=== PATIENT | female | born 1945 | race Caucasian/White ===

== ENCOUNTER 2017-05-04 07:19 | Emergency (ER) | payer MEDICARE ==
[2017-05-04 08:40] LABS: BASOPHILS % (AUTO) 0.9 % (0.0-5.0); EOSINOPHILS % (AUTO) 0.8 % (0.0-8.0); HEMATOCRIT 39.7 % (36-48); MEAN CORPUSCULAR HEMOGLOBIN 31.4 pg (27.0-33.0); MEAN CORPUSCULAR HGB CONC 33.9 g/dL (32.0-36.0); MEAN CORPUSCULAR VOLUME 92.5 fL (79-99); MONOCYTES % (AUTO) 4.7 % (3.0-13.0); NEUTROPHILS % (AUTO) 26.6 % (40.0-77.0); NUCLEATED RED BLOOD CELLS 0.1 % (0.0-0.19); PLATELET COUNT (AUTO) 261 K/uL (130-400); RED CELL DISTRIBUTION WIDTH 13.4 % (11.0-15.5); WHITE BLOOD COUNT (AUTO) 20.2 K/uL (4.8-10.8)
[2017-05-04 08:48] LABS: CREATININE 0.7 mg/dL (0.5-1.5)
[2017-05-04 08:56] LABS: ALBUMIN 3.2 g/dL (3.5-5.0); BILIRUBIN,TOTAL 0.7 mg/dL (0.2-1.0); TOTAL PROTEIN, SERUM 7.5 g/dL (6.0-8.3)
[2017-05-04 09:06] LABS: B-TYPE NATRIURETIC PEPTIDE 30 pg/mL (0-100)
[2017-05-04] MEDS ORDERED: CEFTRIAXONE SODIUM 1 GM ONE (10:33)
== END 2017-05-04 11:03 | disposition home or self-care (01) ==
LOC: EDH 07:19
DX: J01.00 Acute maxillary sinusitis, unspecified (principal); J06.9 Acute upper respiratory infection, unspecified; R79.9 Abnormal finding of blood chemistry, unspecified; K21.9 Gastro-esophageal reflux disease without esophagitis; E78.5 Hyperlipidemia, unspecified; Z79.899 Other long term (current) drug therapy; Z91.041 Radiographic dye allergy status; Z90.49 Acquired absence of other specified parts of digestive tract; Z90.710 Acquired absence of both cervix and uterus
CPT/HCPCS: 36415; 71046; 80053; 83880; 84484; 85025; 87804 ×2; 93005; 96374; 99285; J0696

== ENCOUNTER 2018-03-22 16:30 | Emergency (ER) | payer MEDICARE ==
[2018-03-22 17:26] LABS: APPEARANCE,URINE Cloudy (CLEAR); BILIRUBIN,URINE Negative (NEGATIVE); COLOR,URINE Yellow (YELLOW); GLUCOSE, URINE (UA) Negative (NEGATIVE); KETONES,URINE Negative (NEGATIVE); LEUKOCYTE ESTERASE ,URINE Large (NEGATIVE); NITRATE,URINE Positive (NEGATIVE); OCCULT BLOOD,URINE Small (NEGATIVE); PH,URINE 5.5 (5.0-8.0); PROTEIN,URINE Negative (NEGATIVE)
[2018-03-22 17:47] LABS: BACTERIA,URINE Moderate /HPF (None Seen); WBC,URINE 51-100 /HPF (0-1)
[2018-03-22 17:48] LABS: SQUAMOUS EPITHELIAL CELL,UR Rare /HPF (0-2); TRANSITIONAL EPI CELLS,URINE Rare /HPF (None Seen)
[2018-03-22] MEDS ORDERED: CEFTRIAXONE SODIUM 1 GM ONE (18:17)
[2018-03-22] MEDS ORDERED: LIDOCAINE HCL-MPF 1% 2ML VIAL ONE (18:17)
== END 2018-03-22 18:46 | disposition home or self-care (01) ==
LOC: EDH 16:30
DX: N30.00 Acute cystitis without hematuria (principal); C95.10 Chronic leukemia of unspecified cell type not having achieved remission; K21.9 Gastro-esophageal reflux disease without esophagitis; E78.5 Hyperlipidemia, unspecified; Z90.49 Acquired absence of other specified parts of digestive tract; Z90.710 Acquired absence of both cervix and uterus; Z98.890 Other specified postprocedural states; Z91.041 Radiographic dye allergy status
CPT/HCPCS: 81001; 87077 ×2; 87088; 87186 ×2; 96372; 99283; J0696; J3490

== ENCOUNTER 2020-07-21 10:12 | Inpatient (IN) | payer MEDICARE ==
[~2020-07-21] VITALS: Ht 152.4 cm; Wt 59.3 kg
[2020-07-21 10:46] LABS: BASOPHILS % (AUTO) 0.1 % (0.0-5.0); EOSINOPHILS % (AUTO) 0.2 % (0.0-8.0); HEMATOCRIT 39.5 % (36-48); LYMPHOCYTES % (AUTO) 77.4 % (21.0-51.0); MEAN CORPUSCULAR HGB CONC 32.9 g/dL (32.0-36.0); MONOCYTES % (AUTO) 2.4 % (3.0-13.0); NEUTROPHILS % (AUTO) 19.5 % (40.0-77.0); PLATELET COUNT (AUTO) 314 K/uL (130-400); RED CELL DISTRIBUTION WIDTH 13.4 % (11.0-15.5)
[2020-07-21 10:59] LABS: CREATININE 0.7 mg/dL (0.5-1.5); POTASSIUM 4.1 mmol/L (3.5-5.1)
[2020-07-21 11:02] LABS: ALBUMIN 3.6 g/dL (3.5-5.0); BILIRUBIN,TOTAL 0.6 mg/dL (0.2-1.0); TOTAL PROTEIN, SERUM 7.7 g/dL (6.0-8.3)
[2020-07-21 11:50] LABS: APPEARANCE,URINE Clear (CLEAR); BILIRUBIN,URINE Negative (NEGATIVE); COLOR,URINE Yellow (YELLOW); GLUCOSE, URINE (UA) Negative (NEGATIVE); KETONES,URINE Negative (NEGATIVE); LEUKOCYTE ESTERASE ,URINE Trace (NEGATIVE); NITRATE,URINE Negative (NEGATIVE); OCCULT BLOOD,URINE Negative (NEGATIVE); PROTEIN,URINE Negative (NEGATIVE); UROBILINOGEN,URINE 0.2 mg/dL (0.2-1.0)
[2020-07-21 11:55] LABS: BASOPHILS % (MANUAL) 1 % (0-2); LYMPHOCYTES % (MANUAL) 82 % (22-44); MONOCYTES % (MANUAL) 3 % (2-9); SEGMENTED NEUTROPHILS % 14 % (40-70)
[2020-07-21 11:56] LABS: MAN.DIFF COMMENT-IMPRESSION MANUAL DIFFERENTIAL
[2020-07-21 11:57] LABS: PLATELET MORPHOLOGY COMMENT ADEQUATE
[2020-07-21 12:00] LABS: BACTERIA,URINE Rare /HPF (None Seen); RBC,URINE 0-1 /HPF (0-1); SQUAMOUS EPITHELIAL CELL,UR Rare /HPF (0-2); WBC,URINE 0-1 /HPF (0-1)
[2020-07-21] MEDS ORDERED: ONDANSETRON 4MG INJ ONE (12:32)
[2020-07-21] MEDS ORDERED: KETOROLAC 15MG/ML VIAL (15MG/ML) ONE (12:33)
[2020-07-21 12:42] LABS: INR 0.97 (0.85-1.15); PROTHROMBIN TIME 10.6 SEC (9.6-11.6)
[2020-07-21] MEDS ORDERED: ZOSYN 3.375GM+NS 50ML 50 ML IV ONE (12:42)
[2020-07-21 12:43] LABS: PARTIAL THROMBOPLASTIN TIME 23.5 SEC (26.3-35.5)
[2020-07-21] MEDS ORDERED: GUAIFENESIN-DM 200/20 MG 10 ML PO PRN (16:45)
[2020-07-21] MEDS ORDERED: LACTULOSE 20 GM/30 ML UDCUP PO PRN (16:45)
[2020-07-21] MEDS ORDERED: MORPHINE 2 MG SYG IV PRN ×2 (16:45→17:45)
[2020-07-21] MEDS ORDERED: ONDANSETRON 4MG INJ IV PRN (16:45)
[2020-07-21] MEDS ORDERED: DIPHENHYDRAMINE HCL 25 MG CAPSULE PO PRN (16:45)
[2020-07-21] MEDS ORDERED: ACETAMINOPHEN 325 MG TAB PO PRN ×2 (16:45)
[2020-07-21] MEDS ORDERED: DiphenhydrAMINE HCL 50 MG/ML VIAL IV PRN (16:45)
[2020-07-21] MEDS ORDERED: MAG/ALUM/SIMETH 30 ML UDCUP PO PRN (16:45)
[2020-07-21] MEDS ORDERED: NITROGLYCERIN 0.4 MG SL TAB SL PRN (16:45)
[2020-07-21] MEDS ORDERED: LACTATED RINGERS 1000ML 1,000 ML IV ONE (17:29)
[2020-07-21 19:50] VITALS: BP 159/53
[2020-07-21] MEDS: FAMOTIDINE 20MG VIAL IV SCH (20:33)
[2020-07-21] MEDS: ZOSYN 3.375GM+NS 50ML 50 ML IV SCH (20:33)
[2020-07-21] MEDS: LACTATED RINGERS 1000ML 1,000 ML IV SCH (20:34)
[2020-07-21] MEDS ORDERED: OMEP40CA21 PO (22:44)
[2020-07-21] MEDS ORDERED: METF-526 PO (22:44)
[2020-07-21] MEDS ORDERED: UBID1CAP56 PO (22:44)
[2020-07-21] MEDS ORDERED: ROSU20TA23 PO (22:44)
[2020-07-21 23:21] VITALS: BP 140/50
[2020-07-22 03:53] VITALS: BP 137/47
[2020-07-22 05:21] LABS: BASOPHILS % (AUTO) 0.3 % (0.0-5.0); EOSINOPHILS % (AUTO) 0.6 % (0.0-8.0); HEMATOCRIT 31.3 % (36-48); LYMPHOCYTES % (AUTO) 82.8 % (21.0-51.0); MEAN CORPUSCULAR HEMOGLOBIN 31.4 pg (27.0-33.0); MEAN CORPUSCULAR HGB CONC 32.9 g/dL (32.0-36.0); MEAN CORPUSCULAR VOLUME 95.4 fL (79-99); MONOCYTES % (AUTO) 2.3 % (3.0-13.0); NEUTROPHILS % (AUTO) 13.8 % (40.0-77.0); PLATELET COUNT (AUTO) 228 K/uL (130-400); RED BLOOD CELL COUNT(AUTO) 3.28 MIL/uL (4.00-5.50); RED CELL DISTRIBUTION WIDTH 13.7 % (11.0-15.5)
[2020-07-22 05:27] LABS: WHITE BLOOD COUNT (AUTO) 29.9 K/uL (4.8-10.8)
[2020-07-22] MEDS: ZOSYN 3.375GM+NS 50ML 50 ML IV SCH ×3 (05:30→21:58)
[2020-07-22] MEDS: LACTATED RINGERS 1000ML 1,000 ML IV SCH (05:31)
[2020-07-22 05:48] LABS: ALBUMIN 2.7 g/dL (3.5-5.0); BILIRUBIN,TOTAL 0.5 mg/dL (0.2-1.0); CREATININE 0.6 mg/dL (0.5-1.5); POTASSIUM 3.6 mmol/L (3.5-5.1); TOTAL PROTEIN, SERUM 5.9 g/dL (6.0-8.3)
[2020-07-22 08:47] VITALS: BP 151/52
[2020-07-22] MEDS: FAMOTIDINE 20MG VIAL IV SCH (10:35)
[2020-07-22] MEDS: ENOXAPARIN SODIUM 40 MG/0.4 ML SYRINGE SQ SCH (10:37)
[2020-07-22 12:13] VITALS: BP 145/51
[2020-07-22 17:27] VITALS: BP 109/73
[2020-07-22 20:00] VITALS: BP 155/75
[2020-07-23] VITALS (7 sets, daily range): BP systolic 135–176; BP diastolic 52–82
[2020-07-23] MEDS: ZOSYN 3.375GM+NS 50ML 50 ML IV SCH ×3 (05:21→21:36)
[2020-07-23 05:32] LABS: BASOPHILS % (AUTO) 0.3 % (0.0-5.0); HEMATOCRIT 31.9 % (36-48); LYMPHOCYTES % (AUTO) 87.7 % (21.0-51.0); MEAN CORPUSCULAR HEMOGLOBIN 31.5 pg (27.0-33.0); MEAN CORPUSCULAR HGB CONC 33.2 g/dL (32.0-36.0); MEAN CORPUSCULAR VOLUME 94.7 fL (79-99); MONOCYTES % (AUTO) 1.8 % (3.0-13.0); NEUTROPHILS % (AUTO) 9.1 % (40.0-77.0); PLATELET COUNT (AUTO) 243 K/uL (130-400); RED BLOOD CELL COUNT(AUTO) 3.37 MIL/uL (4.00-5.50); RED CELL DISTRIBUTION WIDTH 13.5 % (11.0-15.5); WHITE BLOOD COUNT (AUTO) 29.8 K/uL (4.8-10.8)
[2020-07-23 05:50] LABS: ALBUMIN 2.8 g/dL (3.5-5.0); BILIRUBIN,TOTAL 0.5 mg/dL (0.2-1.0); CREATININE 0.6 mg/dL (0.5-1.5); POTASSIUM 3.5 mmol/L (3.5-5.1); TOTAL PROTEIN, SERUM 6.1 g/dL (6.0-8.3)
[2020-07-23] MEDS: FAMOTIDINE 20MG VIAL IV SCH (09:01)
[2020-07-23] MEDS: ATORVASTATIN 40 MG TABLET PO SCH (09:02)
[2020-07-23] MEDS: PANTOPRAZOLE 40 MG TAB DR PO SCH (09:02)
[2020-07-23] MEDS: ENOXAPARIN SODIUM 40 MG/0.4 ML SYRINGE SQ SCH (09:02)
[2020-07-23] MEDS ORDERED: 0.9%NACL 1000ML 1,000 ML IV ONE (15:30)
[2020-07-23] MEDS ORDERED: KCL 20 MEQ ERTAB PO SCH (20:00)
[2020-07-24] VITALS: BP 145/61
[2020-07-24 04:00] VITALS: BP 126/58
[2020-07-24] MEDS: ZOSYN 3.375GM+NS 50ML 50 ML IV SCH (05:16)
[2020-07-24 05:55] LABS: BASOPHILS % (AUTO) 0.3 % (0.0-5.0); EOSINOPHILS % (AUTO) 1.1 % (0.0-8.0); HEMATOCRIT 33.6 % (36-48); LYMPHOCYTES % (AUTO) 88.9 % (21.0-51.0); MEAN CORPUSCULAR HEMOGLOBIN 30.3 pg (27.0-33.0); MEAN CORPUSCULAR HGB CONC 32.1 g/dL (32.0-36.0); MEAN CORPUSCULAR VOLUME 94.1 fL (79-99); MONOCYTES % (AUTO) 1.6 % (3.0-13.0); PLATELET COUNT (AUTO) 289 K/uL (130-400); RED BLOOD CELL COUNT(AUTO) 3.57 MIL/uL (4.00-5.50); RED CELL DISTRIBUTION WIDTH 13.5 % (11.0-15.5)
[2020-07-24 06:13] LABS: WHITE BLOOD COUNT (AUTO) 33.6 K/uL (4.8-10.8)
[2020-07-24 06:18] LABS: BILIRUBIN,TOTAL 0.4 mg/dL (0.2-1.0); CREATININE 0.7 mg/dL (0.5-1.5); POTASSIUM 3.9 mmol/L (3.5-5.1); TOTAL PROTEIN, SERUM 6.4 g/dL (6.0-8.3)
[2020-07-24 08:27] LABS: EOSINOPHILS % (MANUAL) 3 % (1-6); LYMPHOCYTES % (MANUAL) 77 % (22-44); MONOCYTES % (MANUAL) 1 % (2-9); SEGMENTED NEUTROPHILS % 19 % (40-70)
[2020-07-24 08:28] LABS: MAN.DIFF COMMENT-IMPRESSION MANUAL DIFFERENTIAL
[2020-07-24 08:29] LABS: PLATELET MORPHOLOGY COMMENT ADEQUATE
[2020-07-24 09:22] VITALS: BP 140/87
[2020-07-24] MEDS: FAMOTIDINE 20MG VIAL IV SCH (09:28)
[2020-07-24] MEDS: PANTOPRAZOLE 40 MG TAB DR PO SCH (09:29)
[2020-07-24] MEDS: ATORVASTATIN 40 MG TABLET PO SCH (09:29)
[2020-07-24] MEDS: ENOXAPARIN SODIUM 40 MG/0.4 ML SYRINGE SQ SCH (09:30)
[2020-07-24] MEDS ORDERED: AMOX-429 PO (11:14)
== END 2020-07-24 13:15 | disposition home or self-care (01) | DRG 392 ==
LOC: EDH 10:12 → EDHIP 16:31 → 3DH 19:04
PROVIDERS: ADMIT Family Medicine; ATTEND Family Medicine
DX: K57.32 Diverticulitis of large intestine without perforation or abscess without bleeding (principal); C95.10 Chronic leukemia of unspecified cell type not having achieved remission; K21.9 Gastro-esophageal reflux disease without esophagitis; E78.5 Hyperlipidemia, unspecified; D64.9 Anemia, unspecified; Z91.041 Radiographic dye allergy status; Z87.891 Personal history of nicotine dependence; Z90.49 Acquired absence of other specified parts of digestive tract
CPT/HCPCS: 36415; 74176; 80053; 81001; 82948; 83605; 83690; 84484; 85025; 85610; 85730; 87040; 87324; 93005; G0378; J1650; J1885; J2405; J2543; J3490; J7120